=== PATIENT | female | born 1975 | race Caucasian/White ===

== ENCOUNTER 2024-07-06 09:25 | Emergency (ER) | payer OTHER, SELFPAY ==
[2024-07-06 09:28] VITALS: BP 111/67
[2024-07-06] MEDS: ATIVAN 2 MG IV (09:32)
--- NOTE | 2024-07-06 09:38 | ED.GENMED ---
History of Present Illness
General
Chief Complaint: Seizure
Time Seen by Provider: 07/06/24 09:31
History of Present Illness
History of Present Illness:
TIME OF INITIAL ENCOUNTER: 9:35 AM
HPI: I spoke to EMS for history. EMS states that they were called because the patient fell to the ground twice. There was some concern for seizure-like activity. Upon EMS arrival she was awake alert and talking. Throughout EMS evaluation at the
[facility], she had 2 episodes of blank stare. She ultimately came into the hospital but then started having seizure-like activity x 2. Upon arrival she had an episode of increased tone to the upper extremities, unresponsive, increased secretions, and
cyanosis.
EXAM:
GENERAL: Upon initial evaluation, the patient is ill-appearing, central cyanosis
HEENT: Moist oral mucosa
CARDIOVASCULAR: No murmurs, normal heart rate, regular rhythm, No chest wall tenderness
PULMONARY: No respiratory distress, breath sounds are clear and equal
ABDOMEN: Soft with no peritoneal signs, no tenderness
NEUROLOGIC: Seconds after I went into the room, the patient's arms became rigid but no GTC activity, she was unresponsive, she had increased secretions
PSYCHIATRIC: Unable to assess upon arrival
EXTREMITIES: Nontender, no edema, moves all extremities equally
SKIN: No rash, no lesions
NUMBER AND COMPLEXITY OF PROBLEMS ADDRESSED AT THE ENCOUNTER
� Chronic conditions affecting care: History of migraines
� Acute Exacerbation and/or Progression of Chronic Illness: This is an acute problem
� Differential Diagnosis includes: Seizures, benzo/alcohol withdrawal, intracranial mass/pathology
AMOUNT AND/OR COMPLEXITY OF DATA TO BE REVIEWED AND ANALYZED
� I performed an independent evaluation of and my interpretation is:
EKG:
CT: CT head personally reviewed and I noted left frontal hyperdensity consistent with intraparenchymal hemorrhage, CTA head and neck negative for aneurysm, CT C-spine negative for acute trauma
X-rays:
Laboratory Studies: White count and hemoglobin are normal, platelets normal, INR 1.0, bicarb is 19, otherwise chemistries unremarkable, glucose 141, hCG negative, alcohol undetected, UDS pending
Other:
� Review of other/old records: I reviewed records, the patient was seen here with a cough in 2022, CAT scan of the brain in 2018 was unremarkable
� Clinical information was obtained by an independent historian: I spoke to EMS extensively upon patient arrival
� Prescriptions/Medications Considered but not given:
� Further testing considered but not performed:
RISK OF COMPLICATIONS AND/OR MORBIDITY OR MORTALITY OF PATIENT MANAGEMENT
� Social determinants of health affecting care: Lives at home
� Discussion with other providers: I have asked Dr. Sargent to expedite reading of the CTA
� Escalation of care including admission/observation vs risk of discharge considered: The patient was seen immediately upon arrival and seconds after initial evaluation she did have seizure-like activity. She was given Ativan
and Keppra. I emergently discussed case with neurology initially and then CT was noted to be abnormal. I also notified Dr. Kearney who agrees with checking CTA.
ANY OTHER UPDATES:
The patient had seizure activity immediately upon arrival that was rather significant. She had sonorous respirations, increased secretions orally and was cyanotic. She was suctioned upon arrival. CT shows intraparenchymal hemorrhage at the left
frontal region but CTA shows no aneurysm. I communicated with Dr. Kearney initially who recommends trauma transfer to [facility]. I spoke to trauma attending who accepts for further management. She has been postictal afterwards but has been
slowly improving.
Past History
Past History
ED Past Medical History: Other (Varicose veins, Migraines)
ED Past Surgical History: None
Social History
Tobacco: Non-smoker
Alcohol: None
Drug: None
Personal:
Living: with family
Phy Exam
Physical Exam
Physical Exam:
See HPI
Course
Orders/Labs/Results
Orders:
Orders
07/06/24 09:31
CT Cervical Spine W/o Iv Contr Urgent
Comment:
Reason For Exam: ?trauma
CT Head W/o Iv Contrast Urgent
Comment:
Reason For Exam: first time recurrent seizures
Levetiracetam Injectable [Keppra] 1,000 mg IV NOW STA
Lorazepam [Ativan] 2 mg IV NOW STA
07/06/24 09:38
Test Result ONCE
07/06/24 09:44
CT Head & Neck Angio W/wo IV Urgent
Comment:
Reason For Exam: unresponsive
07/06/24 09:59
Alcohol Urgent
Complete Blood Count/With Diff Urgent
Comprehensive Metabolic Panel Urgent
HCG, Serum Qualitative Screen Urgent
07/06/24 10:16
PT/INR [Prothrombin Time] Urgent
PTT Urgent
07/06/24 10:35
Add On- LAB Urgent
Tests Added?: Alcohol
Abnormal Lab Results
07/06/24
09:59
RBC 3.97 L 10^6/uL
(4.20-5.40)
Hct 36.5 L %
(37.0-47.0)
MCH 31.5 H pg
(27.0-31.0)
Abs Immat Gran (auto) 0.1 H 10^3/uL
(0-0.05)
Immature Gran % 1.0 H %
(0-0.5)
Neutrophils % 75.5 H %
(42.2-75.2)
Lymphocytes % 17.2 L %
(20.5-51.1)
Carbon Dioxide 19 L mmol/L
(22-30)
Glucose 141 H mg/dl
(70-99)
Total Protein 6.2 L g/dl
(6.3-8.2)
07/06/24 09:59
07/06/24 09:59
Vital Signs
Initial and Last Documented VS:
Initial Vital Signs
Pulse Resp BP Pulse Ox
88 18 111/67 98
07/06/24 09:28 07/06/24 09:28 07/06/24 09:28 07/06/24 09:28
Last Documented Vital Signs
Temp Pulse Resp BP Pulse Ox
37.0 C 84 16 102/66 98
07/06/24 11:00 07/06/24 11:00 07/06/24 11:00 07/06/24 11:00 07/06/24 11:00
*Critical Care Note
Total Time (30-74mins, 75-104mins- exclusive of procedures): 55min
comment:
Patient was seizing upon arrival and was cyanotic. She was placed on oxygen and was also suctioned. CT imaging obtained and I discussed case emergently with neurosurgery, neurology, radiology, and trauma attending at [facility]. Patient slowly
improving. She had been postictal throughout most of her stay in the Emergency Department.
ED Attending Note
-
Portions of this chart may have been created with voice recognition software.� Occasional wrong word or��sound alike� substitutions may have occurred due to the inherent limitations of voice recognition software.
Discharge Plan
Departure
Patient Disposition: Acute Care Hospital
Date of Disposition: 07/06/24
Time of Disposition: 10:48
Discharge Problem:
Intraparenchymal hemorrhage of brain
Prescriptions:
No Action
No Current Medications
0
Referrals:
UNKNOWN - PT DOES,NOT KNOW [Family Provider] -
Hospital Transfer
Other hospital: [facility]
I certify that the patient requires transfer: Yes
Discussed case with accepting physician: Trauma Attending
Reason for transfer: higher level of care and availability of service
Interventions
Interventions:
*Risk Screen - Suicide Last Done: 07/06/24 10:01
*General Assessment Last Done: 07/06/24 09:28
*Neglect/Abuse Screening Last Done: 07/06/24 10:01
*ED- Fall Risk Assessment Last Done: 07/06/24 10:01
*ED COVID-19 Vaccine History Last Done: 07/06/24 10:01
ED- Cardiac Assessment Last Done: 07/06/24 10:01
ED- Neurological Assessment Last Done: 07/06/24 10:01
ED- Pulmonary Assessment Last Done: 07/06/24 10:01
Discharge Date and Time
Print Language: JAPANESE
[2024-07-06 10:00] VITALS: BP 109/65; BMI 26.5
[2024-07-06 10:01] VITALS: BP 109/65
[2024-07-06 10:10] LABS: % Basophils 0.7 % (0-2); % Eosinophils 1.3 % (0-6); % Lymphocytes 17.2 % (20.5-51.1); % Monocytes 4.3 % (1.7-9.3); % Neutrophils 75.5 % (42.2-75.2); Absolute Basophils 0.1 10^3/uL (0-0.2); Absolute Eosinophils 0.1 10^3/uL (0-0.7); Absolute Immature Granulocytes 0.1 10^3/uL (0-0.05); Absolute Lymphocytes 1.2 10^3/uL (1.2-3.4); Absolute Monocytes 0.3 10^3/uL (0.1-0.6); Absolute Neutrophils 5.3 10^3/uL (1.4-6.5); Hematocrit 36.5 % (37.0-47.0); Hemoglobin 12.5 g/dL (12.0-16.0); Mean Corp Hgb Conc. 34.2 g/dL (33.0-37.0); Mean Corpuscular Hgb 31.5 pg (27.0-31.0); Mean Corpuscular Volume 91.9 fL (81.0-99.0); Mean Platelet Volume 9.4 fL (7.4-10.4); Nucleated Red Blood Cells % 0 %; Platelet Count 199 10^3/uL (130-400); Red Blood Cell Count 3.97 10^6/uL (4.20-5.40); Red Cell Dist. Width 12.6 % (11.5-14.5); White Blood Cell Count 7.1 10^3/uL (4.8-10.8)
[2024-07-06] MEDS: KEPPRA 1000 MG IV (10:12)
--- NOTE | 2024-07-06 10:17 | EDRN ---
neurology and Dr. Atkinson [facility]
[2024-07-06 10:22] LABS: HCG, Serum Qualitative Screen Negative
--- NOTE | 2024-07-06 10:23 | EDRN ---
neurologist currently still at the pts bedside
--- NOTE | 2024-07-06 10:27 | EDRN ---
neurologist currently still at the pts bedside
--- NOTE | 2024-07-06 10:30 | EDRN ---
the pt is starting to wake up and is able to tell this RN her name, , and is able to tell this RN where she is
--- NOTE | 2024-07-06 10:31 | CON.NEURO ---
Neuro Assessment/Plan
Assessment
48 year old woman presenting with seizure cluster found to have left frontal intraparenchymal hemorrhage
unclear which happened first?
patient had CTA, imgs reviewed and I don't see any aneurysms; report pending
will need MRI brain evaluate for underlying mass; and if negative repeating mri in ~3 months would be helpful
if no bleed source found then it would most likely be a traumatic bleed; though spontaneously having ~6 seizures cluster without provocation in a patient without epilepsy is also unlikely
Plan
patient to be transferred to [facility] trauma service
at time of my evaluation patient not actively seizing though will need EEGs to eval for subclinical seizure
Agree Ativan, Keppra
continue Keppra 500 BID for now, tentatively 6-12 months
Consultation
Order
Date of Consultation: 07/06/24
Requesting Provider: Matt Atkinson
Reason for Consult: Seizure
Subjective/Objective
Subjective Data
Date of Service: July 06, 2024
She is a 48 year old woman presenting with seizure. Per EMS, patient was making a sandwich this morning, collapsed, fell and was suspected to have a seizure. When EMS arrived she was awake and talking; they witnessed 2 staring spells. In the ED, had
2x tonic clonic seizures, increased tone to the upper extremities, unresponsive, increased secretions, and cyanosis. She was given Ativan 2mg by EMS, and additional 2mg in the ED; and then Keppra 1000
Found to have left frontal hemorrhage.
Objective Data
Vital Signs
Temp Pulse Resp BP Pulse Ox
37.0 C 104 14 109/65 100
07/06/24 10:01 07/06/24 10:15 07/06/24 10:15 07/06/24 10:01 07/06/24 10:15
Lab Results
07/06/24 09:59
Patient Allergies
No Known Allergies Allergy (Verified 07/06/24 09:40)
Physical Exam
-
stupor, arouses slightly to tactile stim
PERRLA
localizes and withdraws symmetrically to light nox stim
Medications
-
Home Medications
�Medication �Instructions �Recorded
No Meds [No Current Medications] 07/06/24
--- NOTE | 2024-07-06 10:32 | EDRN ---
Dr. Atkinson currently at the pts bedside, the pts keeps pacing in the pts room and keeps pacing in and out of the pts room and in and out of the emergency department
[2024-07-06 10:34] LABS: ALT (SGPT) 16 U/L (0-35); AST (SGOT) 19 U/L (14-36); Albumin 3.9 g/dl (3.5-5.0); Alkaline Phosphatase 42 U/L (38-126); Blood Urea Nitrogen 17 mg/dl (7-17); Calcium 8.9 mg/dl (8.4-10.2); Carbon Dioxide 19 mmol/L (22-30); Chloride 105 mmol/L (98-107); Estimated Creatinine Clearance 92 ml/min; Glucose 141 mg/dl (70-99); Potassium 4.1 mmol/L (3.5-5.1); Sodium 138 mmol/L (135-145); Total Bilirubin 0.6 mg/dl (0.2-1.3); Total Protein 6.2 g/dl (6.3-8.2); eGFR > 60.00
--- NOTE | 2024-07-06 10:34 | EDRN ---
the pt is going to be transferred to [facility]
[2024-07-06 10:41] LABS: Alcohol None Detected
[2024-07-06 10:56] LABS: INR 1.04; PT 13.9 Sec (11.4-14.6)
[2024-07-06 10:57] LABS: APTT 27.3 Sec (23.4-35.0)
[2024-07-06 11:00] VITALS: BP 102/66
--- NOTE | 2024-07-06 11:45 | EDRN ---
this RN called the receiving [facility] ER at [phone] and gave verbal report
[2024-07-06 12:00] VITALS: BP 107/71
--- NOTE | 2024-07-06 12:29 | EDRN ---
[facility] has arrived and this RN gave verbal report to Veronica
--- NOTE | 2024-07-06 12:30 | EDRN ---
this RN called Jacqueline at [facility] at [phone] and notified her that the pt was on their way with transport
== END 2024-07-06 12:32 | disposition short-term general hospital (02) ==
LOC: EMR 09:25
PROVIDERS: EMERGENCY PHYSICIAN Emergency Medicine; OTHER PHYSICIAN Psychiatry & Neurology Clinical Neurophysiology
DX: I61.1 Nontraumatic intracerebral hemorrhage in hemisphere, cortical (principal)
CPT/HCPCS: 99291; 96374; 96375; 70450; 70496; 70498; 72125; 80053; 82077; 84703; 85025; 85610; 85730; Q9967

== ENCOUNTER 2024-09-30 22:21 | Emergency (ER) | payer OTHER, SELFPAY ==
[2024-09-30 22:23] VITALS: BP 128/81
--- NOTE | 2024-10-01 00:17 | ED.GENMED ---
History of Present Illness
General
Chief Complaint: Head Injury
Source: patient and spouse
Exam Limitations: none
Time Seen by Provider: 09/30/24 22:55
Nursing documentation reviewed up to this point in time: agreed with
History of Present Illness
History of Present Illness:
Note:
CHIEF COMPLAINT(S)
Head injury from a basketball resulting in significant pain and anxiety about potential complications.
HISTORY OF PRESENT ILLNESS
The patient is a 49-year-old female with a past history of a brain bleed, who presented with a head injury. She reports being struck by a basketball approximately six inches in diameter, leading to a significant scratch and concern for re-injury.
The incident occurred on July 06, , or . Previous medical evaluation identified a brain bleed that had resolved and a skull fracture; however, the patient has a lingering fear of further complications. The recent trauma has exacerbated her
anxiety as this incident reminded her of initial injury fear. The patient experienced no symptoms post-injury. The patient has significant past medical issues, noting seizures managed with levetiracetam. She admittedly has been inconsistent with her
medication regime, taking it at night instead of the prescribed times. She expresses discomfort with undergoing another computed tomography (CT) scan, having already had seven prior scans since the initial event. The patient states she was advised
by doctors that the prior bleed and skull fracture were healing, yet she remains concerned about the current injury. There is a discussion on the need for imaging to rule out rebleeding or new injuries.
CHRONIC MEDICAL CONDITIONS SIGNIFICANTLY AFFECTING CARE
- History of brain bleed
- Seizures managed with levetiracetam
MEDICATIONS
Levetiracetam - the patient is currently non-compliant with the recommended dosing schedule.
REVIEW OF SYSTEMS
- Neurology: History of seizures, currently non-compliant with the medication regimen.
PHYSICAL EXAM
- Nursing notes reviewed and vital signs reviewed.
PLAN
A CT scan of the head is ordered to evaluate for possible rebleeding or new injuries due to the recent trauma.
DIFFERENTIAL DIAGNOSIS
The Differential Diagnosis includes, in no particular order and is not limited to:
1. Traumatic brain injury
2. Concussion
3. Rebleed of an existing injury
4. Skull fracture
5. Subdural hematoma
6. Epidural hematoma
7. Seizure disorder exacerbation
8. Post-traumatic headache
9. Anxiety disorder
Disposition:
SUMMARY OF ENCOUNTER
The patient is a 29-year-old female who presented to the emergency department after being forcefully struck in the back of the head with a basketball. A CT scan of the head was performed, which showed no acute intracranial processes. The imaging did
note a recent left occipital fracture with an intraventricular bleed, but there was no evidence of acute intracranial abnormality related to todays incident. It is likely that the patient suffered a concussion.
DISPOSITION
Discharge.
ASSESSMENT
Possible concussion following a head injury from a basketball.
PLAN
Discharge the patient with instructions for home care and monitor for symptoms of concussion such as persistent headache, confusion, dizziness, nausea, or vision changes. Advise rest and avoidance of activities that could lead to another head injury.
INDEPENDENT REVIEW OF LABS AND INTERPRETATION OF TESTS
My independent review of the interpretation of the CT scan of the head shows no acute intracranial processes. There was a note of a prior left occipital fracture with an intraventricular bleed, but no current acute findings.
PATIENT EDUCATION AND COUNSELING
Counseled the patient on monitoring symptoms of concussion and provided guidance on rest and avoidance of activities that might lead to further head injury.
FOLLOW-UP INSTRUCTIONS
Advise follow-up with a primary care physician or neurologist if symptoms persist or worsen.
MEDICAL DECISION MAKING
1. Number and Complexity of Problems Addressed: Chronic conditions affecting care were not noted. Differential Diagnosis includes a concussion, for which the patient was evaluated.
2. Data:
Category 1
- CT scan of the head was performed and reviewed.
3. Risk:
Consideration of Admission/Observation: Escalation of care including admission/observation was considered given the complexity and risk of the patients presenting complaint. However, ultimately I feel the patient is safe for outpatient management
with close follow up. Reasoning: The work-up was reassuring, does not reveal any acute life-threatening processes, and the patient is agreeable with discharge and reliable for follow-up.
DIAGNOSIS
Concussion, likely secondary to head trauma (ICD-10: S06.0X0A).
Past History
Past History
ED Past Medical History: Other (Varicose veins, Migraines)
ED Past Surgical History: None
Social History
Tobacco: Non-smoker
Alcohol: None
Drug: None
Personal:
Living: with family
Phy Exam
General Physical Exam
General Presentation: well appearing and no apparent distress
General Skin: warm and dry
General Habitus: normal
General Mental: alert
General Hydration: appears well hydrated
ENT Exam
ENT Exam: EOMI, pharynx normal, neck supple and normocephalic
Eye Exam
Eye Exam: PERRL, cornea clear and conjunctiva normal
Cardiovascular Exam
Cardiovascular Exam: regular rate/rhythm, no edema, no murmur and normal peripheral pulses
Pulmonary Exam
Pulmonary Exam: lungs clear, no respiratory distress, no rales, no crackles, no rhonchi, no stridor, no wheezing and no cough
Gastrointestinal Exam
Gastrointestinal Exam: normal bowel sounds, non tender, soft, no organomegaly, no pulsatile mass and non distended
Neurological Exam
Neurological Exam: alert, oriented x3, no motor deficits and speech normal
Musculoskeletal Exam
Musculoskeletal Exam: full ROM and no edema
Skin Exam
Skin Exam: normal color, warm/dry, no rash and no petechia
Psychiatric Exam
Psychiatric Exam: normal mood/affect
Course
Orders/Labs/Results
Orders:
Orders
09/30/24 23:05
CT Head W/o Iv Contrast Urgent
Comment:
Reason For Exam: new head injury. Recent frontal bleed
Vital Signs
Initial and Last Documented VS:
Initial Vital Signs
Temp Pulse Resp BP Pulse Ox
98.2 F 81 20 128/81 99
09/30/24 22:23 09/30/24 22:23 09/30/24 22:23 09/30/24 22:23 09/30/24 22:23
Last Documented Vital Signs
Temp Pulse Resp BP Pulse Ox
98.2 F 81 20 128/81 99
09/30/24 22:23 09/30/24 22:23 09/30/24 22:23 09/30/24 22:23 10/01/24 00:21
*Pulse Oximetry
SaO2: 99
Oxygen Mode of Delivery: Room air
Patient hypoxic: no
*Critical Care Note
Total Time (30-74mins, 75-104mins- exclusive of procedures): Not Applicable
Update Note
Update Note:
NAME: JANAE BRYANT
DATE OF EXAM: 09/30/2024
Patient No: [id number]
Physician: FADI^Brigette
Date of : 1975
Past Medical History (entered by Technologist):
Reason For Exam (entered by Technologist): hit in back of head w/ basketball
Other Notes (entered by Technologist): h/o brain bleed
priors
Additional Information (per Vision Radiologist): Recent head bleed and fracture
NONCONTRAST HEAD CT
Compared to cervical spine on 07/06/2024
IMPRESSION
Remote left occipital fracture
No evidence of acute intracranial abnormality. No hemorrhage or mass. Ventricles, sulci, Salas-White matter, and bones are unremarkable. Sinuses are unremarkable.
Case discussed with clinician listed above at 12:07 AM eastern time
Kendrick Garcia M.D.
ED Attending Note
-
Portions of this chart may have been created with voice recognition software.� Occasional wrong word or��sound alike� substitutions may have occurred due to the inherent limitations of voice recognition software.
Discharge Plan
Departure
Patient Disposition: Home (Routine Discharge)
Date of Disposition: 10/01/24
Time of Disposition: 00:18
Patient with high blood pressure during this ER visit?: Yes
Condition: Good
Discharge Problem:
Closed head injury
Instructions: Concussion, Adult (DC), Head Injury in Adults (DC), BLOOD PRESSURE
Prescriptions:
No Action
No Current Medications
0
Interventions
Interventions:
*General Assessment Last Done: 09/30/24 22:23
ED- Neurological Assessment Last Done: 09/30/24 23:00
ED-Skin Assessment Last Done: 09/30/24 23:00
Discharge Date and Time
Print Language: CHADIAN
== END 2024-10-01 00:49 | disposition home or self-care (01) ==
LOC: EMR 22:21
PROVIDERS: EMERGENCY PHYSICIAN Student in an Organized Health Care Education/Training Program
DX: S09.90XA Unspecified injury of head, initial encounter (principal); W21.05XA Struck by basketball, initial encounter; R03.0 Elevated blood-pressure reading, without diagnosis of hypertension; F41.9 Anxiety disorder, unspecified; R56.9 Unspecified convulsions; G43.909 Migraine, unspecified, not intractable, without status migrainosus; I83.90 Asymptomatic varicose veins of unspecified lower extremity; Z91.148 Patient's other noncompliance with medication regimen for other reason; Z79.899 Other long term (current) drug therapy; Z87.820 Personal history of traumatic brain injury; Z86.16 Personal history of COVID-19
CPT/HCPCS: 99284; 70450